=== PATIENT | male | born 1965 | race Hispanic/Latino ===

== ENCOUNTER 2017-12-09 11:57 | Emergency (ER) | payer BC ==
[2017-12-09 12:04] VITALS: RESP 18; BMI 40.6
[2017-12-09 13:45] VITALS: BP 150/91; PULSE 79; TEMP 98.1; O2SAT 98
--- NOTE | 2017-12-09 16:23 | ED PDOC ---
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 Patient reports feeling flushed and having a numbing sensation to his lips. He reports his symptoms began shortly after eating eggs with potatoes at a diner. Patient states his symptoms feels similar to previous allergic reaction. Patient denies any fever, chills, nausea, vomiting, abdominal pain, chest pain, shortness of breath or any other complaints. Time/Duration: Prior to Arrival Past Medical History - Provider Review Nursing Documentation Reviewed: Yes - Infectious Disease Hx of Infectious Diseases: None - Cardiac Hx Hypertension: Yes - Renal Hx Renal Disorder: No - Endocrine/Metabolic Hx Endocrine Disorders: No - Psychiatric Hx Depression: No Hx Emotional Abuse: No Hx Physical Abuse: No Hx Substance Use: No - Anesthesia Hx Anesthesia: No - Suicidal Assessment Feels Threatened In Home Enviroment: No Family/Social History - Physician Review Nursing Documentation Reviewed: Yes Family/Social History: No Known Family HX Smoking Status: Never Smoked Hx Alcohol Use: Yes Hx Substance Use: No Hx Substance Use Treatment: No Allergies/Home Meds Allergies/Adverse Reactions: Allergies shellfish Allergy (Uncoded 09/11/15 14:25) ITCHING Home Medications: Home Meds Medication Instructions Recorded Confirmed Esomeprazole Magnesium [Nexium] 40 mg PO DAILY 06/04/12 09/11/15 Review of Systems - Physician Review All systems were reviewed & negative as marked: Yes - Review of Systems Constitutional: absent: Fevers, Night Sweats Respiratory: absent: SOB Cardiovascular: absent: Chest Pain Gastrointestinal: absent: Abdominal Pain, Nausea, Vomiting Neurological: Other (numbing sensation to lips) Physical Exam Vital Signs Reviewed: Yes Vital Signs Temp Pulse Resp BP Pulse Ox 12/09/17 13:44 98.1 F 79 18 150/91 H 98 12/09/17 12:03 98.0 F 84 18 143/94 H 97 Temperature: Afebrile Blood Pressure: Hypertensive Pulse: Regular Respiratory Rate: Normal Appearance: Positive for: Well-Appearing, Non-Toxic, Comfortable Pain Distress: None Mental Status: Positive for: Alert and Oriented X 3 - Systems Exam Head: Present: Atraumatic, Normocephalic Pupils: Present: PERRL Extroacular Muscles: Present: EOMI Conjunctiva: Present: Normal Mouth: Present: Moist Mucous Membranes Pharnyx: Present: Normal. No: ERYTHEMA, EXUDATE, TONSILS ENLARGED, Uvular Deviation, Strider Neck: Present: Normal Range of Motion Respiratory/Chest: Present: Clear to Auscultation, Good Air Exchange. No: Respiratory Distress, Accessory Muscle Use Cardiovascular: Present: Regular Rate and Rhythm, Normal S1, S2. No: Murmurs Abdomen: Present: Normal Bowel Sounds. No: Tenderness, Distention, Peritoneal Signs Back: Present: Normal Inspection Upper Extremity: Present: Normal ROM, NORMAL PULSES, Neurovascularly Intact, Deformity (left upper extremity congenitally deformed). No: Cyanosis, Edema, Temperature Abnormalties Lower Extremity: Present: Normal Inspection. No: Edema Neurological: Present: GCS=15, CN II-XII Intact, Speech Normal Skin: Present: Warm, Dry, Normal Color, Other (Mild erythema to face and chest) Psychiatric: Present: Alert, Oriented x 3, Normal Insight, Normal Concentration Medical Decision Making ED Course and Treatment: 12/09/17 16:17 Impression: A 52 year old male with allergic reaction Plan: -- Solumedrol -- Reassess and disposition Progress Notes: Patient was observed in the emergency room for a couple of hours. Patient saturating on 100% room air. On re-evaluation, patient feels better and is in no acute distress. I have discussed the plan with the patient, who expresses understanding. Patient in agreement with plan to be discharged home. Patient is stable for discharge. Patient was instructed to follow up with physician or return if symptoms worsen or new concerning symptoms arise. - Medication Orders Current Medication Orders: Discontinued Medications Methylprednisolone (Solu-Medrol) 125 mg IVP STAT STA Stop: 12/09/17 12:19 Last Admin: 12/09/17 12:27 Dose: 125 mg IVP Administration Document 12/09/17 12:27 ROSE (Rec: 12/09/17 12:27 ROSE [id number]) Charges for Administration # of IVP Administrations 1 - Scribe Statement The provider has reviewed the documentation as recorded by the Vickibamee Herrera Provider Scribe Attestation: All medical record entries made by the Scribe were at my direction and personally dictated by me. I have reviewed the chart and agree that the record accurately reflects my personal performance of the history, physical exam, medical decision making, and the department course for this patient. I have also personally directed, reviewed, and agree with the discharge instructions and disposition. Disposition/Present on Arrival - Present on Arrival Any Indicators Present on Arrival: No History of DVT/PE: No History of Uncontrolled Diabetes: No Urinary Catheter: No History of Decub. Ulcer: No History Surgical Site Infection Following: None - Disposition Have Diagnosis and Disposition been Completed?: No Diagnosis: Allergic reaction Disposition: HOME/ ROUTINE Disposition Time: 14:00 Condition: IMPROVED Discharge Instructions (ExitCare): Food Allergy Additional Instructions: Thank you for letting us take care of you today. The emergency medical care you received today was directed at your acute symptoms. If you were prescribed any medication, please fill it and take as directed. It may take several days for your symptoms to resolve. Return to the Emergency Department if your symptoms worsen, do not improve, or if you have any other problems. Please contact your doctor or call one of the physicians/clinics you have been referred to that are listed on the Patient Visit Information form that is included in your discharge packet. Bring any paperwork you were given at discharge with you along with any medications you are taking to your follow up visit. Our treatment cannot replace ongoing medical care by a primary care provider (PCP) outside of the emergency department. Thank you for allowing the [facility] team to be part of your care today. Follow up with your primary care doctor in 2-3 days for re-evaluation and further management. Prescriptions: predniSONE [Prednisone] 40 mg PO DAILY #10 tab Referrals: Goldy Monge MD [Primary Care Provider] - Follow up with primary Forms: [employer] ([place]), WORK NOTE
== END 2017-12-09 15:19 | disposition home or self-care (01) ==
LOC: ED 11:57
DX: T78.40XA Allergy, unspecified, initial encounter (principal); I10 Essential (primary) hypertension
CPT/HCPCS: 96374; 99284; J2930

== ENCOUNTER 2018-10-01 06:11 | Observation (INO) | payer BC ==
[2018-10-01 06:18] VITALS: BMI 29.8
--- NOTE | 2018-10-01 06:23 | EDPD ---
HPI Stroke - General Time Seen by Provider: 10/01/18 06:15 Historian: Patient - History of Present Illness Narrative History of Present Illness (Free Text): 10/01/18 06:18 Mark Morales is a 53 year old male, whose past medical history includes hypertension, who presents to the Emergency department complaining of numbness. Patient states while sitting at work at approximately 05:00 today, he began experiencing numbness radiating down his left leg with associated facial numbness, generalized weakness, and headache. Patient denies any fever, chills, chest pain, shortness of breath, nausea, vomiting, diarrhea, urinary symptoms, back pain, neck pain, dizziness, or any other complaints. PMD: Dr. Monge Date:: 10/01/18 Time: 06:18 Onset:: Hours Timing: Currently Symptomatic Context: Other (Work) Associated Symptoms: Headache, Numbness Exacerbated by: Nothing Relieved by: Nothing - Location Locate Left: Lower extremity rTPA Inclusion/Exclusion - Refusal of Treatment Patient Refused Treatment: No - Inclusion Criteria for Altepase Patient is 18 years or Older: Yes The Clinical Diagnosis of Ischemic Stroke That is Causing a Potentially Disabling Neurological Deficit: No Time of Onset is Well Established to be Less Than 270 Minute Before Treatment Would Begin: Yes Risk/Benefit Discussed With Patient/Family Member Present: Yes - Exclusion Criteria for Altepase Uncontrolled Hypertension at Time of Treatment (Systolic BP above 185 or Diastolic BP above 110 mmHg): No Active Internal Bleeding: No Known Bleeding Diathesis Including but Not Limited to: Platelets Below 100,000/mm,PTT Above 40 sec After Heparin Use, Current Use of Oral Anitcoagulant With INR Greater Than 1.7 or PT Greater Than 15 secs: No Evidence of an Intracranial Hemorrhage: No Evidence of Major Acute Infarct With Signs Greater Than 1/3 MCA Territory: No Suspicion of Subarachnoid Hemorrhage on Pretreatment Evaluation Even if CT Head Negative For Hemorrhage: No - Warning to TPA With Conditions Following Conditions Weighed Against Anticipated Benefit: Yes Condition: Stroke Serevity Too Mild Past Medical History - Provider Review Nursing Documentation Reviewed: Yes - Infectious Disease Hx of Infectious Diseases: None - Cardiac Hx Hypertension: Yes - Renal Hx Renal Disorder: No - Endocrine/Metabolic Hx Endocrine Disorders: No - Psychiatric Hx Depression: No Hx Emotional Abuse: No Hx Physical Abuse: No Hx Substance Use: No - Anesthesia Hx Anesthesia: No - Suicidal Assessment Feels Threatened In Home Enviroment: No Family/Social History - Family/Social History Family History: Non-Contributory - Dr. Garcaí Nursing documentation reviewed.: Yes Allergies/Home Meds Allergies/Adverse Reactions: Allergies shellfish Allergy (Uncoded 10/01/18 12:58) SHORTNESS OF BREATH Home Medications: Home Meds Medication Instructions Recorded Confirmed Nebivolol [Bystolic] 10 mg PO DAILY 10/01/18 10/01/18 Review of Systems - Physician Review All systems were reviewed & negative as marked: Yes - Review of Systems Constitutional: Other (+generalized weakness). absent: Fevers Eyes: Normal ENT: Normal Respiratory: Normal. absent: SOB, Cough Cardiovascular: Normal. absent: Chest Pain Gastrointestinal: Normal. absent: Abdominal Pain, Diarrhea, Nausea, Vomiting Genitourinary Male: Normal. absent: Dysuria, Frequency, Hematuria, Urinary Output Changes Musculoskeletal: Normal. absent: Back Pain, Neck Pain Skin: Normal. absent: Rash Neurological: Headache, Other (+left leg numbness, +facial numbness) Endocrine: Normal Hemo/Lymphatic: Normal Psychiatric: Normal ED Stroke Physical Exam Vital Signs Reviewed: Yes Temperature: Afebrile Blood Pressure: Normal Pulse: Regular Respiratory Rate: Normal Appearance: Positive for: Well-Appearing, Non-Toxic, Comfortable Pain Distress: None Mental Status: Positive for: Alert and Oriented X 3 - Systems Exam Head: Present: Atraumatic, Normocephalic Pupils: Present: PERRL Extroacular Muscles: Present: EOMI Conjunctiva: Present: Normal Ears: Present: NORMAL TM Mouth: Present: Moist Mucous Membranes Pharnyx: Present: Normal Neck: Present: Normal Range of Motion Respiratory/Chest: Present: Clear to Auscultation, Good Air Exchange. No: Respiratory Distress, Accessory Muscle Use Cardiovascular: Present: Regular Rate and Rhythm, Normal S1, S2. No: Murmurs Abdomen: Present: Normal Bowel Sounds. No: Tenderness, Distention, Peritoneal Signs Back: Present: GCS, CN, SP Upper Extremity: Present: Normal Inspection. No: Cyanosis, Edema Lower Extremity: Present: Normal Inspection. No: Edema Neurologic: Present: GCS=15, CN II-XII Intact, Speech Normal, Motor Func Grossly Intact, Normal Cerebellar Funct, Memory Normal. No: Normal Sensory Function (slight decreased sensation left facial/left thigh to touch), Facial Droop Skin: Present: Warm, Dry, Normal Color. No: Rashes Lymphatic: Present: OX3, NI, NC Psychiatric: Present: Alert, Oriented x 3, Normal Insight, Normal Concentration Medical Decision Making ED Course and Treatment: 10/01/18 06:18 Impression: 53 year old male complaining of left leg numbness, facial numbness, generalized weakness, and headache. Plan: -- CT Head w/o contrast -- EKG -- Chest X-ray -- Labs, troponin, lipid panel, blood type and screen -- IV fluids -- Reassess and disposition Prior Visits: Notes and results from previous visits were reviewed. Progress Notes: 10/01/18 06:13 Pt seen on arrival to Emergency department. Code Stroke called. Pt taken to CT scan. 10/01/18 06:44 Reviewed EKG, NSR at [address]pm. LAHB. Non-specific ST/T wave changes. 10/01/18 06:45 Reviewed radiology, Chest X-ray shows no acute processes. CT Head: Normal size of the ventricles and extra-axial spaces for the patient's age. Normal white matter tracts of the supratentorial brain. Normal basal ganglia and thalami. Normal brainstem. Normal cerebellum. There is no demonstrated extra-axial, intraparenchymal, or intraventricular hemorrhage. There are no findings of an acute ischemic infarction. Normal calvarium. There is no demonstrated fracture. Normal soft tissue structures. Normal visualized paranasal sinuses. IMPRESSION: Normal unenhanced CT scan of the brain. Electronically signed on Oct 01, 2018 6:43:57 AM EST by: Tequila Monroy M.D., Certified by ABR, MSK, Neuroradiology 10/01/18 06:[address] Trinidad, neurologist, who states pt is not a candidate for tPA. Recommends Aspirin at this time. 10/01/18 06:[address] Lisa Monge, who is aware and agrees with plan. Accepts pt in to his service. Pt will go Telemetry observation for TIA. Requests Dr. Rapp on consult. - Lab Interpretations I have reviewed the lab results: Yes - RAD Interpretation County Auditor: ED Physician, Radiologist - EKG Interpretation Interpreted by ED Physician: Yes Type: 12 lead EKG - Scribe Statement The provider has reviewed the documentation as recorded by the Scribe Caterina Sherice Provider Daly Attestation: All medical record entries made by the Daly were at my direction and personally dictated by me. I have reviewed the chart and agree that the record accurately reflects my personal performance of the history, physical exam, medical decision making, and the department course for this patient. I have also personally directed, reviewed, and agree with the discharge instructions and disposition. NIHSS Scale ([place]) Time Performed: 06:18 - How Severe is the Stoke Baseline Level of Consciousness: 0=Alert LOC to Questions: 0=Both comments correct LOC to commands: 0=Obeys both correctly Best Gaze: 0=Normal Visual: 0=No visual loss Facial: 0=Normal Motor Arm - Left: 0=No drift Motor Arm - Right: 0=No drift Motor Leg - Left: 0=No drift Motor Leg - Right: 0=No drift Limb Ataxia: 0=Absent Sensory: 1=Mild to moderate loss Best Language: 0=No aphasia Dysarthia: 0=Normal articulation Extinction & Inattention (Neglect): 0=Normal, no object Score: 1 Risk Level: Minor Stroke Risk Disposition/Present on Arrival - Present on Arrival Any Indicators Present on Arrival: No History of DVT/PE: No History of Uncontrolled Diabetes: No Urinary Catheter: No History of Decub. Ulcer: No History Surgical Site Infection Following: None - Disposition Have Diagnosis and Disposition been Completed?: Yes Diagnosis: Facial numbness, Leg numbness Disposition: HOSPITALIZED Disposition Time: 06:54 Condition: STABLE
[2018-10-01] MEDS ORDERED: Sodium Chloride 0.9% 1,000 ML IV SCH (06:30)
[2018-10-01 06:35] LABS: BASO # 0.02 K/mm3 (0.0-2.0); BASO % 0.4 % (0.0-3.0); EOS # 0.1 (0.0-0.7); EOS % 2.1 % (1.5-5.0); HEMOGLOBIN 15.2 g/dL (14.0-18.0); LYMPH # 1.8 (1.2-3.4); LYMPH % 34.4 % (22.0-35.0); MEAN CELL VOLUME 93.9 fl (80.0-105.0); MEAN CORPUSCULAR HEMOGLOBIN 32.2 pg (25.0-35.0); MEAN CORPUSCULAR HGB CONC 34.3 g/dl (31.0-37.0); MEAN PLATELET VOLUME 9.8 fl (7.0-11.0); MONO # 0.5 (0.1-0.6); MONO % 9.7 % (1.0-6.0); RBC 4.72 10^6/uL (3.5-6.1); RED CELL DISTRIBUTION WIDTH 13.5 % (11.5-14.5); WHITE BLOOD COUNT 5.4 10^3/uL (4.5-11.0)
[2018-10-01 06:41] LABS: INR 1.11; PARTIAL THROMBOPLASTIN TIME 37.8 Seconds (26.9-38.3); PROTHROMBIN TIME 12.5 SECONDS (9.4-12.5)
[2018-10-01 06:57] LABS: ALBUMIN 4.5 g/dL (3.0-4.8); ALT/SGPT 57 U/L (7-56); AST/SGOT 118 U/L (17-59); BLOOD UREA NITROGEN 16 mg/dL (7-21); CALCIUM 9.1 mg/dL (8.4-10.5); GFR NON-AFRICAN AMERICAN > 60; HDL CHOLESTEROL 53 mg/dL (29-60)
[2018-10-01 07:06] LABS: TROPONIN I < 0.01 ng/mL
[2018-10-01 07:08] LABS: LDL CHOLESTEROL 130 mg/dL (0-129)
--- NOTE | 2018-10-01 08:15 | CT ---
Date of service: 10/01/2018 PROCEDURE: CT HEAD WITHOUT CONTRAST. HISTORY: Code Stroke COMPARISON: None available. TECHNIQUE: Axial computed tomography images were obtained through the head/brain without intravenous contrast. Radiation dose: Total exam DLP = 976.13 mGy-cm. This CT exam was performed using one or more of the following dose reduction techniques: Automated exposure control, adjustment of the mA and/or kV according to patient size, and/or use of iterative reconstruction technique. FINDINGS: HEMORRHAGE: No intracranial hemorrhage. BRAIN: No mass effect or edema. No atrophy or chronic microvascular ischemic changes. VENTRICLES: Unremarkable. No hydrocephalus. CALVARIUM: Unremarkable. PARANASAL SINUSES: Unremarkable as visualized. No significant inflammatory changes. MASTOID AIR CELLS: Unremarkable as visualized. No inflammatory changes. OTHER FINDINGS: The report concurs with the preliminary [facility] report IMPRESSION: Normal CT of the Head.
[2018-10-01 09:22] VITALS: RESP 18; O2SAT 97
--- NOTE | 2018-10-01 09:49 | RAD ---
Date of service: 10/01/2018 PROCEDURE: CHEST RADIOGRAPH, 1 VIEW HISTORY: Code Stroke COMPARISON: 06/15/2014 FINDINGS: LUNGS: Clear. PLEURA: No pneumothorax or pleural fluid seen. CARDIOVASCULAR: No aortic atherosclerotic calcification present. Normal. OSSEOUS STRUCTURES: No significant abnormalities. VISUALIZED UPPER ABDOMEN: Normal. OTHER FINDINGS: None. IMPRESSION: No active disease.
[2018-10-01] MEDS ORDERED: Naproxen 550 mg Tab PO SCH (10:45)
[2018-10-01 12:05] VITALS: BP 146/84; TEMP 98.8
--- NOTE | 2018-10-01 14:15 | CP.PCM.PCO ---
Physician Communication Note - Physician Communication Note Physician Communication Note: TIA, MRI BRAIN PENDING. ASA 81 MG PO DAILY. BP CONTROL.
[2018-10-01 15:21] VITALS: PULSE 80
--- NOTE | 2018-10-01 18:53 | US ---
PROCEDURE: Bilateral carotid artery duplex ultrasound HISTORY: Carotid stenosis PHYSICIAN(S): Chiki Mcginnis MD. TECHNIQUE: Duplex sonography and color-flow Doppler were used to evaluate the carotid bifurcations and limited segments of the vertebral arteries bilaterally. FINDINGS: There is mild smooth hypoechoic plaque noted at the carotid bifurcations bilaterally. The peak systolic velocity in the proximal right internal carotid artery is 86 cm/sec. This corresponds to a 0-19 percent proximal right ICA stenosis. Normal systolic velocities are noted in the proximal right external carotid artery. There is antegrade flow in the small right vertebral artery. The peak systolic velocity in the proximal left internal carotid artery is 93 cm/sec. This corresponds to a 0-19 percent proximal left ICA stenosis. Normal systolic velocities are noted in the proximal left external carotid artery. There is antegrade flow in the left vertebral artery. IMPRESSION: 1. Bilateral 0-19 percent proximal ICA stenoses. 2. Antegrade flow in both small vertebral arteries.
--- NOTE | 2018-10-01 20:27 | CON ---
DATE: 10/01/2018 HISTORY OF PRESENT ILLNESS: This is a 53-year-old male with past medical history of hypertension and came to the emergency room complaining of numbness of the thigh of the left leg, was radiating below the knee. Denies any numbness or weakness. Past medical history of hypertension and also left upper limb deformity by , came to the hospital with numbness of the left side of the face and leg. CAT scan of the head was done, which was reported negative. PAST MEDICAL HISTORY: Hypertension. ALLERGIES: TO SHELLFISH. HOME MEDICATIONS: Bystolic 10 mg p.o. daily. REVIEW OF SYSTEMS: A 10-point review of systems was negative. PHYSICAL EXAMINATION HEENT: Normocephalic, atraumatic. NECK: Supple. NEUROLOGIC: Awake and oriented to self and place. Cranial nerves II through XII are tested. Pupils reactive. EOM intact. Visual field full. No facial asymmetry. Tongue midline. Motor examination; spontaneous movement of extremities noted. Deep tendon reflexes 1+. Plantars are downgoing. Sensory appears intact. Cerebellar gait normal. IMPRESSION AND PLAN: A 53-year-old complaining of facial numbness and left lower extremity numbness. No weakness. Also some headache. CAT scan of the head was done, which was reported as negative. Workup in progress. Continue present management. We will follow the results of MRI and carotid Doppler. Tone Rapp MD
--- NOTE | 2018-10-01 21:43 | CARD ---
APPROVED REPORT Date of service: 10/01/2018 EKG Measurement Heart [id number] <Conclusion> Normal sinus rhythm Left anterior fascicular block Abnormal ECG
--- NOTE | 2018-10-02 00:53 | HP ---
DATE OF EXAM: 10/01/2018 One day admitting history and physical and discharge AMA. CHIEF COMPLAINT: Right thigh numbness. HISTORY OF PRESENT ILLNESS: This is a 53-year-old man who presented to the emergency room after waking up this morning, feeling well, going to work and noticing some left thigh numbness and tingling. There was no weakness. There was no slurring of speech. There was no facial droop, mouth symptoms or hand symptoms. The tingling and numbness in the lateral left thigh continued. He talked to some coworkers, who became concerned and called the ambulance. His home blood pressure was 150/95 that day. He took his usual medications and that did nothing out of the ordinary or different. He does have a long history of chronic back pain and left-sided sciatica, but this numbness seem a little bit different and that it was not quite as severe or painful. PAST MEDICAL HISTORY: Significant for hypertension and palsy since with contracture, deformity, shrunken left hand. MEDICATIONS: Include Bystolic, pantoprazole, Combivent and a psoriasis cream, fluticasone, clobetasol, and triamcinolone. ALLERGIES: HE SAYS HE IS ALLERGIC TO SEAFOOD. SOCIAL HISTORY: He occasionally drinks alcohol and has a few cigarettes per week. REVIEW OF SYSTEMS: Otherwise, unremarkable on multiple points. PHYSICAL EXAMINATION: GENERAL: The patient is awake, alert, and clear. HEENT: Head and neck is unremarkable. There is no facial weakness, smile, shortened teeth, grimacing , and eye movement is all intact. NECK: Supple without masses. There is no JVD. No carotid bruits. LUNGS: Show good aeration right and left. HEART: Regular, not tachycardic. I do not hear any murmurs. ABDOMEN: Moderately overweight. EXTREMITIES: As noted above. 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 Foot movements are strong. Dorsalis pedis pulses are equal as well both bilaterally. The patient feels very much that he would like to go home earlier today, he told the nurses he was planning to leave against medical advice. I spoke with him at length, reviewed the results of his blood result so far. I explained to him how I got this is a TIA probably more likely to be sciatica priority and therefore we want to do an MRI, check carotid ultrasound, and then I will be happy to send him home before dinner knowing these results. The patient agreed. Carotid ultrasound was ordered as well as MRI. Sedation with Xanax 0.5 mg was ordered as the patient says he is somewhat claustrophobic even with elevators, but he is going to try to proceed with MRI at my request. I left him with followup and instructions that we will followup either inpatient later today, tomorrow, or by telephone, later in the day received a phone call from the nurse that the patient had the carotid ultrasound, did not want to stay for MRI, and was leaving against medical advice. He was advised to continue aspirin at least until he can see me tomorrow and I will try to call him with results. Carotid ultrasound seems normal. Risk of leaving the hospital against medical advice were explained to the patient we follow up with him in the office. FINAL DISCHARGE DIAGNOSES: 1. Numbness of left thigh, most likely sciatica inversion, doubt transient ischemic attack or cerebrovascular accident, but the patient left against medical advice before workup to be completed. 2. Hypertension. 3. Psoriasis. 4. Reflux/gastroesophageal reflux disease. 5. Palsy of the left hand. Oskar Monge MD
== END 2018-10-01 15:35 | disposition left against medical advice (07) ==
LOC: ED 06:11 → ERH 07:19 → 2RNO 09:53
PROVIDERS: ADMIT Internal Medicine; ATTEND Internal Medicine
DX: R20.0 Anesthesia of skin (principal); R51 Headache; I10 Essential (primary) hypertension; M54.32 Sciatica, left side; K21.9 Gastro-esophageal reflux disease without esophagitis
CPT/HCPCS: 70450; 71045; 80053; 80061; 83036; 84484; 85025; 85610; 85730; 86850; 86900; 93005; 93880; 99283; G0378; J7030